=== PATIENT | female | born 1965 | race Caucasian/White ===

== ENCOUNTER 2017-01-24 08:43 | Emergency (ER) | payer BC ==
--- NOTE | 2017-01-24 09:02 | ED ---
Lower Extremity - History of Current Complaint Chief Complaint: EDExtremityLower Stated Complaint: LT ANKLE SWELLING Time Seen by Provider: 01/24/17 09:02 Pain Intensity: 6 - Allergies/Home Medications Allergies/Adverse Reactions: Allergies Allergy/AdvReac Type Severity Reaction Status Date / Time No Known Allergies Allergy Verified 01/24/17 09:04 PMH/Surg Hx/FS Hx/Imm Hx Endocrine/Hematology History: Denies: Hx Diabetes Cardiovascular History: Reports: Hx Angina, Hx Hypertension - ON DAILY MEDS Denies: Hx Coronary Artery Disease, Hx Hypercholesterolemia, Hx Myocardial Infarction, Hx Valvular Heart Disease, Other Cardiovascular Problems/Disorders History: Reports: Hx Kidney Stones - RIGHT AND LEFT Musculoskeletal History: Reports: Hx Back Problems Sensory History: Reports: Hx Contacts or Glasses Denies: Hx Hearing Aid Opthamlomology History: Reports: Hx Contacts or Glasses - Surgical History Surgery Procedure, Year, and Place: 1991 BILATERAL TUBAL LIGATION [place] , [facility] WITH URETERAL STENT, [facility] Hx Anesthesia Reactions: No Infectious Disease History: Denies: Hx of Known/Suspected MRSA, Hx Shingles, Hx Tuberculosis, Hx Known/ Suspected VRE, Hx Known/Suspected VRSA, History Other Infectious Disease, Traveled Outside the [place] in Last 30 Days - Family History Known Family History: Positive: Cardiac Disease Family History: Heart FHx - Social History Alcohol Use: Occasionally Hx Substance Use: No Substance Use Type: Reports: None Hx Tobacco Use: Yes Smoking Status (MU): Current Every Day Smoker Type: Cigarettes Amount Used/How Often: 1/2-TO 1 PPD 31 YRS Have You Smoked in the Last Year: Yes Physical Exam Vital Signs On Initial Exam: Initial Vitals Temp Pulse Resp BP Pulse Ox 98.6 F 80 20 177/96 97 01/24/17 08:56 01/24/17 08:56 01/24/17 08:56 01/24/17 08:56 01/24/17 08:56 Diagnostics - Vital Signs Vital Signs Temp Pulse Resp BP Pulse Ox 01/24/17 08:56 98.6 F 80 20 177/96 97 - Laboratory Result Diagrams: 01/24/17 11:25 01/24/17 11:25 Lab Statement: Any lab studies that have been ordered have been reviewed, and results considered in the medical decision making process. - Radiology lower extremity Xray Interpretation: No Acute Changes - Unremarkable left ankle. Soft tissue swelling is noted. Radiology Interpretation Completed By: Radiologist - Ultrasound No standard instances Ultrasound Interpretation: No Acute Changes - No evidence for LEFT lower extremity deep venous thrombosis. Ultrasound Interpretation Completed By: Radiologist Lower Extremity Course/Dx - Diagnoses Differential Diagnosis/HQI/PQRI: Positive: Arthritis, Cellulitis, Contusion, Dislocation, DVT, Gout, Infection, Septic Arthritis, Sprain, Strain, Other - GOUT, bone spur Provider Diagnoses: Left ankle swelling, Left ankle pain Discharge - Discharge Plan Condition: Stable Disposition: HOME Patient Education Materials: Swollen Joint (ED), Arthralgia (ED) Additional Instructions: Take ibuprofen for pain and inflammation. You may take Geddes in between doses to help with pain only as needed. Use crutches to assist you when you walk. Be sure to move around and be active as much as possible to prevent blood clots however rest foot and ankle. Elevate, ice and use collin bandage for compression. Follow up with PCP on Sunday. If symptoms worsen or new symptoms develop (redness, increased swelling/pain, fever/chills) please return and seek medical attention sooner.
--- NOTE | 2017-01-24 09:32 | RAD ---
Indication: Left ankle pain. 3 views of left ankle demonstrate soft tissue swelling. No fracture is identified. Ankle mortise is intact. IMPRESSION: Unremarkable left ankle. Soft tissue swelling is noted.
--- NOTE | 2017-01-24 10:47 | RAD ---
INDICATION: LEFT lower extremity pain and edema. COMPARISON: No relevant prior exams available on the [facility] PACS for comparison. TECHNIQUE: Mcarthur scale, color Doppler, and spectral analysis of the deep veins of the LEFT lower extremity. Vessel compression, phasicity, and augmentation assessed. REPORT: The LEFT common femoral, great saphenous, profunda femoral, femoral, popliteal, peroneal, and posterior tibial veins are patent. Patent muscular perforating vein visualized at the lower LEFT calf. Patency of the RIGHT common femoral vein documented. IMPRESSION: No evidence for LEFT lower extremity deep venous thrombosis.
[2017-01-24 12:10] LABS: Albumin 3.7 g/dL (3.2-5.2); Calcium 8.9 mg/dL (8.6-10.3); EGFR African American 119.3 (>60); EGFR Non-African American 92.8 (>60); Potassium 3.8 mmol/L (3.5-5.0); Total Bilirubin 0.4 mg/dL (0.2-1.0); Total Protein 6.7 g/dL (6.4-8.9)
[2017-01-24 12:17] LABS: Hematocrit 41 % (35-47); Hemoglobin 13.1 g/dl (12.0-16.0); Mean Corpuscular HGB Conc 32 g/dl (31-36); Mean Corpuscular Hemoglobin 31 pg (27-31); Mean Corpuscular Volume 97 fL (80-97); Mean Platelet Volume 9 um3 (7.4-10.4); Red Blood Count 4.18 10^6/ul (4.0-5.4); Red Cell Distribution Width 17 % (10.5-15); White Blood Count 10.2 10^3/ul (3.5-10.8)
[2017-01-24] MEDS ORDERED: HYDROcodone/ACETAMIN 5-325 MG* 1 TAB PO ONE (12:50)
[2017-01-24 13:17] VITALS: BP 176/95
== END 2017-01-24 13:20 | disposition home or self-care (01) ==
LOC: ED 08:43
DX: M25.572 Pain in left ankle and joints of left foot (principal); M25.472 Effusion, left ankle; R60.0 Localized edema; I10 Essential (primary) hypertension; Z87.442 Personal history of urinary calculi; F17.210 Nicotine dependence, cigarettes, uncomplicated
CPT/HCPCS: 36415; 80053; 84550; 85025; 99282

== ENCOUNTER 2018-09-23 10:48 | Emergency (ER) | payer BC ==
[2018-09-23 10:55] VITALS: BP 150/100
== END 2018-09-23 12:33 | disposition left against medical advice (07) ==
LOC: ED 10:48
DX: R10.13 Epigastric pain (principal); R11.0 Nausea; Z53.21 Procedure and treatment not carried out due to patient leaving prior to being seen by health care provider

== ENCOUNTER 2018-09-25 13:19 | Emergency (ER) | payer BC ==
--- NOTE | 2018-09-25 14:24 | UC ---
Abdominal Pain Female HPI - HPI Summary HPI Summary: 52-year-old female presents with one-week history of epigastric pain that radiates into her right lower chest and right upper abdomen. States pain is fairly constant, describes as a burning, and worsens with eating. Associated with some mild nausea. States she was hospitalized a couple of years ago for some chest pain and during that admission the performed an endoscopy and she was noted to have a small ulcer at that time. Denies fever, chills, chest pain , palpitations, shortness of breath, dizziness or weakness, diaphoresis, vomiting, diarrhea, dysuria, frequency, urgency, or hematuria. - History of Current Complaint Chief Complaint: UCAbdominalPain Stated Complaint: R SIDED PAIN/ RIB AREA, NAUSEA Time Seen by Provider: 09/25/18 14:09 Hx Obtained From: Patient Hx Last Menstrual Period: pt stated she bled for 6 weeks may-jul Pain Intensity: 7 Allergies/Adverse Reactions: Allergies Allergy/AdvReac Type Severity Reaction Status Date / Time No Known Allergies Allergy Verified 09/25/18 13:55 PMH/Surg Hx/FS Hx/Imm Hx Previously Healthy: Yes Cardiovascular History: Hypertension GI/ History: Kidney Stones - Surgical History Surgical History: Yes Surgery Procedure, Year, and Place: 1991 BILATERAL TUBAL LIGATION [place] , [place] WITH URETERAL STENT, [facility] [place] - Family History Known Family History: Positive: Cardiac Disease Family History: Heart FHx - Social History Occupation: Employed Part-time Lives: With Family Alcohol Use: Occasionally Substance Use Type: None Smoking Status (MU): Current Every Day Smoker Type: Cigarettes Amount Used/How Often: 1/2-TO 1 PPD 31 YRS Have You Smoked in the Last Year: Yes Household Exposure Type: Cigarettes - Immunization History Most Recent Influenza Vaccination: 2014 Most Recent Tetanus Shot: not sure Most Recent Pneumonia Vaccination: none Review of Systems All Other Systems Reviewed And Are Negative: Yes Constitutional: Negative: Fever, Chills Skin: Negative: Rash Respiratory: Negative: Shortness Of Breath, Cough Cardiovascular: Negative: Palpitations, Chest Pain Gastrointestinal: Positive: Abdominal Pain, Nausea. Negative: Vomiting, Diarrhea Genitourinary: Negative: Dysuria, Hematuria, Frequency, Urgency, Vaginal/Penile Discharge, Abnormal Bleeding Musculoskeletal: Positive: Negative Neurological: Positive: Negative Is Patient Immunocompromised?: No Physical Exam - Summary Physical Exam Summary: GENERAL APPEARANCE: Well developed, well nourished, alert and cooperative, and appears to be in no acute distress. CARDIAC: Normal S1 and S2. No S3, S4 or murmurs. Rhythm is regular. There is no peripheral edema, cyanosis or pallor. Extremities are warm and well perfused. Capillary refill is less than 2 seconds. Peripheral pulses intact. LUNGS: Clear to auscultation without rales, rhonchi, wheezing or diminished breath sounds. ABDOMEN: Positive bowel sounds. Soft, nondistended. Tenderness to RUQ and epigastrum with palpation. No guarding or rebound. No masses or hepatosplenomegally. MUSKULOSKELETAL: ROM intact to all extremities. No joint erythema or tenderness. Normal muscular development. Normal gait. SKIN: Skin normal color, texture and turgor with no lesions or eruptions. Triage Information Reviewed: Yes Vital Signs: Initial Vital Signs Temp 98.6 F 09/25/18 13:50 Pulse 108 09/25/18 13:50 Resp 18 09/25/18 13:50 BP 133/90 09/25/18 13:50 Pulse Ox 98 09/25/18 13:50 Vital Signs Reviewed: Yes Diagnostics - Radiology No standard instances Radiology Interpretation Completed By: Radiologist Summary of Radiographic Findings: Order Information: US ABDOMEN LIMITED. Accession Number: [id number]. CPT: 95959. HISTORY: RUQ pain, r/o gall bladder disease. COMPARISONS: None relevant available at the time of dictation. TECHNIQUE: Multiple transverse and longitudinal ultrasound images were obtained of the right upper quadrant of the abdomen using grayscale, color Doppler, and spectral Doppler imaging. FINDINGS: LIVER: The liver is diffusely echogenic and coarse in echotexture, with decreased acoustic transmission. The liver measures 18.7 cm in long axis. There is normal hepatopedal flow of the portal vein on Doppler imaging. BILIARY TREE: There is no intrahepatic or extrahepatic biliary dilatation. The common duct measures 0.5 cm. GALLBLADDER: The gallbladder is well-visualized. There is no cholelithiasis, gallbladder wall thickening, pericholecystic fluid, or sonographic Cutler sign. PANCREAS: The head of the pancreas is unremarkable. The tail of the pancreas is not well visualized secondary to overlying bowel gas. RIGHT KIDNEY: There is a nonspecific simple cyst of the lower pole of left kidney. This measures up to 0.9 cm. There is a 0.7 cm calculus of the midpole the right kidney. There is no hydronephrosis. The right kidney measures 11.6 x 5.2 x 6.6 cm. AORTA AND IVC: The aorta and IVC are unremarkable. Normal venous waveforms are identifiable on spectral Doppler imaging within the IVC. FLUID: There are no pleural effusions. There is no free fluid within the hepatorenal recess. OTHER FINDINGS: None. IMPRESSION: 1. HEPATOMEGALY WITH FATTY INFILTRATION OF THE LIVER. 2. RIGHT NEPHROLITHIASIS WITHOUT HYDRONEPHROSIS. Abd Pain Female Course/Dx - Course Course Of Treatment: 52-year-old female presents with one-week history of epigastric pain that radiates into her right lower chest and right upper abdomen. States pain is fairly constant, describes as a burning, and worsens with eating. Associated with some mild nausea. States she was hospitalized a couple of years ago for some chest pain and during that admission the performed an endoscopy and she was noted to have a small ulcer at that time. Denies fever, chills, chest pain , palpitations, shortness of breath, dizziness or weakness, diaphoresis, vomiting, diarrhea, dysuria, frequency, urgency, or hematuria. Afebrile. Vital signs stable. Exam reveals an obese adult female in no acute distress with epigastric and right upper quadrant tenderness without guarding or rebound and otherwise unremarkable exam. POC UA showed trace blood and trace protein. A right upper quadrant ultrasound was performed. She was noted to have an enlarged fatty liver, normal gallbladder and pancreas although visualization of the tail of the pancreas was limited by some gastric gas, small renal calculi within the right kidney without hydronephrosis, a simple cyst of the right kidney, and otherwise normal ultrasound. Patient currently does not have a primary care provider therefore I did get her a follow-up appointment with gastroenterology on October 10 at 11 AM to follow-up on the fatty liver findings. I am not sure if this is the source of her pain or if she perhaps has a peptic ulcer considering her past history therefore I'm going to start her on omeprazole 40 mg daily until she follows up in gastroenterology. I did provide her with the contact information for the [facility] physician referral service to assist her with establishing with a primary care provider as she will likely need follow-up for the finding of the renal cyst at some point. Anticipatory guidance and warning symptoms were reviewed with the patient. Verbalizes understanding and agrees with plan of care. - Differential Dx/Diagnosis Differential Diagnosis: Gall Bladder Disease, Hepatitis, Peptic Ulcer Disease, Renal Colic Provider Diagnosis: Fatty liver, Epigastric pain Discharge - Sign-Out/Discharge Documenting (check all that apply): Patient Departure All imaging exams completed and their final reports reviewed: Yes - Discharge Plan Condition: Stable Disposition: HOME Prescriptions: Omeprazole 40 mg PO DAILY #30 cap Patient Education Materials: Non-Alcoholic Fatty Liver Disease (ED), Epigastric Pain (ED), Kidney Cyst (ED) Referrals: No Primary Care Phys,NOPCP [Primary Care Provider] - [facility] [place] PHYSICIAN REFERRAL [Outside] Tejal Coates PA [Physician Beet Topper] - (You have an appointment scheduled for October 10, 2018 at 11:00 am to follow up on the ultrasound and your abdominal pain. Call if you need to reschedule this appointment.) Additional Instructions: The ultrasound performed in the clinic today showed a normal gall bladder however you do have an enlarged fatty liver. I cannot say for sure if this is the cause of your pain however you will need follow up for this finding. Additionally the ultrasound showed a small stone in the right kidney as well as a small cyst on the right kidney which will eventually need further evaluation. You pain could also represent a peptic ulcer therefore I will start you on omeprazole 40 mg daily. I have sent in a 30-day supply to the pharmacy for you until you can follow up with gastroenterology. You have an appointment with SIL Jorge in gastroenterology for October 10, 2018 at 11:00 am for further evaluation. Call if you need to reschedule this appointment. I have also given you the contact information for the [facility] physician referral center if you need assistance with establishing with a primary care provider. Seek immediate medical attention in the emergency room if you develop fever greater than 100.5 F, have worsening abdominal pain, persistent vomiting, blood in vomit or bowel movement, or any worsening of symptoms. - Billing Disposition and Condition Condition: STABLE Disposition: Home
[2018-09-25 15:52] VITALS: BP 122/73
== END 2018-09-25 16:00 | disposition home or self-care (01) ==
LOC: UCEAST 13:19
DX: R10.13 Epigastric pain (principal); K76.0 Fatty (change of) liver, not elsewhere classified; F17.210 Nicotine dependence, cigarettes, uncomplicated; I10 Essential (primary) hypertension; R11.0 Nausea
CPT/HCPCS: 76705; 81003; 99212; G0463

== ENCOUNTER 2018-10-14 17:45 | Emergency (ER) | payer BC ==
[~2018-10-14 17:45] MED LIST: Calcium CHLORIDE 10% SYRINGE* 1 GM/10 ML ONE; EPINEPHrine SYR 0.1MG/ML* SYRINGE ONE; Sodium Bicarbonate 8.4%* 50 ML SYRINGE ONE
[2018-10-14] MEDS ORDERED: EPINEPHrine SYR 0.1MG/ML* SYRINGE ONE (17:54)
--- OUTSIDE RECORDS SUMMARY | 2018-10-14 17:56 | XMS REPORT | Continuity of Care Document ---
:1965 External Reference #:[id number] Author Name LETHA Calloway Address [address] [place] [address] Care Team Providers Name Role Phone Theresa Loza M.D. 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 Primary Care Physician Unavailable Payers Date Identification Numbers Payment Provider Subscriber Effective: 2014 Policy Number: [id number] BC/BS Of [place] Niru Mcdonnell PayID: [id number] [address] [address] [place] [address] Advance Directives Description No Information Available Problems Description No Information Family History Date Family Member(s) Observation Comments Father due to VA () - age 68 Mother Breast Cancer Mother due to Heart disease () - age 73 First Brother Hypertension First Sister [place] age 38 for the first one, has multiple stents Paternal Grandfather due to VA () - age 72 Maternal Grandmother Stroke Social History Type Date Description Comments Sex Unknown Education Highest level completed, 12th grade Lives With Girlfriend Diet Healthy, Well Balanced Sleep Reports continuity disturbances Pets 1 cat Pets 1 dog 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 [employer] Tobacco Use Start: Unknown Current Cigarette Smoker for 36 years 1 Pack Daily ETOH Use Occasional Exercise Type/Frequency Exercises regularly on her feet all day at work Seat Belt/Car Seat Always uses seat belt Allergies, Adverse Reactions, Alerts Description No Known Drug Allergies Medications Medication Date Status Form Strength Qnty SIG Indications Ordering Provider Lisinopril Active Tablets 20mg 1 by Unknown 00 mouth every day Omeprazole Active Capsules DR 40mg 1 by Unknown 00 mouth every day Immunizations Description No Information Available Vital Signs Date Vital Result Comment 09/27/2018 2:30pm BP Systolic 120 mmHg BP Diastolic 80 mmHg Heart Rate 72 /min Body Temperature 98.4 F Respiratory Rate 18 /min Height 65.5 inches 5'5.50" Weight 252.00 lb BMI (Body Mass Index) 41.3 kg/m2 Results Description No Information Available Procedures Description No Information Available Encounters Description No Information Available Plan of Treatment 09/27/2018 - Kaylah Lyn, FNPN95.8 Other specified menopausal and perimenopausal disordersComments:Schedule a PV for rn embedded/breast examK29.60 Other gastritis without bleedingComments:Continue Omeprazole for a month or twoCall if sx [id number] Low back painComments:Will refer to Dr. Carnes if the pain recursFollow up:Followup:. (Follow up)
[2018-10-14 18:00] VITALS: BP 00/00
--- NOTE | 2018-10-14 18:09 | ED ---
Cardiac Resuscitation - HPI Summary HPI Summary: Patient is a 52 y/o female brought in by EMS who presents to the ED c/o cardiac arrest. As per EMS, she called 911 for chest pain and N/V for an unknown amount of time. Upon EMS arrival patient was anxious and SOB and ran onto the stretcher. Once she was sitting on the stretcher she began to have seizure-like activity. Patient regained consciousness then became bradycardic with a HR in the 30s. She then went into asystole around 17:00. Patient has been in asystole for about 40 minutes by the time of arrival at 17:42. EMS initiated CPR and she has been given a total of 3 Epinephrines. Patient was intubated by EMS, and there was a brief moment of PEA. A 3-lead EKG done by EMS revealed an LA. She was accompanied by a friend who was unable to provide any history. As per medical records, PMHx angina, HTN, elevated troponin. A nuclear stress test in August 2015 revealed anterior wall septal ischemia, however Dr. Cason believes this reading to be false. FHx cardiac disease. Patient is a smoker, and smokes PPD for 33 years. ABC Alert called at 17:27, ETA 20 minutes. Patient is a level 5 caveat due to her level of consciousness. Time of called at 18:00. - History of Current Complaint Stated Complaint: ABC Hx Obtained From: EMS, Medical Records Hx From Patient Unobtainable Due To: Extremis Onset/Duration: Minutes/Hours: - asystole since 17:00 Arrest Witnessed: Yes - Additional Pertinent History Primary Care Physician: [id number] - Allergies/Home Medications Allergies/Adverse Reactions: Allergies Allergy/AdvReac Type Severity Reaction Status Date / Time No Known Allergies Allergy Verified 09/25/18 13:55 Home Medications: Home Medications Diclofenac Sodium EC TAB* [Voltaren EC TAB*] 75 mg PO BID WITH MEALS 10/14/18 [ History Confirmed 10/14/18] Lisinopril TAB* [Prinivil TAB*] 20 mg PO DAILY 10/14/18 [History Confirmed 10/14] Norethindrone AC-Eth Estradiol [Microgestin 21 1.5-30 Tab] 1 tab PO DAILY [History Confirmed 10/14/18] Omeprazole (Nf) [Prilosec (NF)] 40 mg PO DAILY 10/14/18 [History Confirmed 10/14] Ranitidine TAB (NF) [Zantac TAB (NF)] 150 mg PO BID 10/14/18 [History Confirmed 10/14/18] - Past Medical History Past Medical History: Other: - angina, HTN, elevated troponin - Family History Family History: Other: - cardiac disease - Social History Social History: Tobacco Use - daily smoker, 1/2 PPD for 33 years, Other: - No drug/alcohol use - Review of Systems Review of Systems: Unobtainable Due to Extremis - CP, N/V, anxiety, SOB Physical Examination - Summary Physical Exam Summary: VITAL SIGNS: unable to obtain GENERAL: Patient is unresponsive. Patient was intubated by EMS. HEAD AND FACE: No signs of trauma. No ecchymosis, hematomas or skull depressions. EYES: Pupils dilated and non responsive MOUTH: Patient intubated NECK: Supple, trachea is midline, no adenopathy, no JVD, no carotid bruit. LUNGS: Decreased breath sounds. CVS: PEA ABDOMEN: Obese, soft, decreased bowel sounds EXTREMITIES: No edema noted. NEURO: Unresponsive SKIN: cyanotic from head to chest - Physical Examination Triage Information Reviewed: Yes Completion Of Physical Exam Limited Due To: Extremis Diagnostics - Vital Signs Vital Signs Temp Pulse Resp BP Pulse Ox 10/14/18 17:55 0 F 0 0 00/00 0 - Laboratory Result Diagrams: 10/14/18 17:47 10/14/18 17:47 Lab Statement: Any lab studies that have been ordered have been reviewed, and results considered in the medical decision making process. Re-Evaluation - Re-Evaluation First Eval Re-Evaluation Time: 17:55 Change: Unchanged Comment: Spoke to pt's family members and girlfriend, who wish for CPR to be stopped. Cardiac Resus. Course/Dx - Course Assessment/Plan: This patient is a 52-year-old female who presents to the emergency department via ambulance with an active CPR. As per EMS crew the patient called 911 complaining of chest pain and shortness of breath. When they arrived the patient ran into out to the EMS truck and she went down, and she developed a seizure. After the seizure the patient had no pulses she was hypoxic and cyanotic in the face therefore they proceeded to start CPR and the patient was intubated. The patient was intubated with a 7.0 ETT. Saranyall obtained an IO and and she was given a total of 3 epinephrines. At arrival to the emergency department the patient was asystolic, cyanotic from the head to the chest, patient was intubated, and she was easy to bag. We continued CPR and gave a total of 8 epinephrines, and she was given calcium and bicarbonate but the patient never regained a rhythm. The patient was asystolic in PEA the whole time. Then I discussed my findings with the patients girlfriend and she agrees that wishes to stop on the resuscitation efforts at this time. Therefore at approximately 6 PM I stopped CPR and pronounced her . I looked at one of the strips from an EKG taken by the EMS and it looks that the patient had ST elevations in leads II, III, and aVF. Also Dr. Downey agrees with ST elevations in 2-3 and aVF. I discussed all my findings and discussed the case with Dr. Ibeth Swartz the corner, and she agrees that the patient will go [place] the [facility] [place] [place]. The patients girlfriend also agrees for the autopsy. - Diagnoses Provider Diagnoses: on arrival, PEA (Pulseless electrical activity) During the Visit The Following Alert/Code Occurred: ABC Alert - Called at 17:27 , ETA 20 minutes - Provider Notifications Discussed Care Of Patient With: Nicholas Downey Time Discussed With Above Provider: 18:04 Instructed by Provider To: Other - Dr. Downey agrees the pt likely had an inferior wall LA based off the EMS EKG reading. At 18:17 Carrie Swartz says that she will take the patient for an autopsy. - Critical Care Time Critical Care Time: 30-74 min - CCT is exclusive of separately billable procedures. Discharge - Sign-Out/Discharge Documenting (check all that apply): Patient Departure - Patient Received Moderate/Deep Sedation with Procedure: No - Discharge Plan Condition: Disposition: Referrals: Enriqueta Gerard [Primary Care Provider] - - Billing Disposition and Condition Condition: Disposition: - Attestation Statements Document Initiated by Scribe: Yes Documenting Scribe: Carly Corona Provider For Whom Scribe is Documenting (Include Credential): Cole Strickland MD Scribe Attestation: I, Carly Corona, scribed for Cole Strickland MD on 10/16/18 at 2141. Scribe Documentation Reviewed: Yes Provider Attestation: The documentation as recorded by the scribeCarly accurately reflects the service I personally performed and the decisions made by me, Cole Strickland MD Status of Scribe Document: Viewed
[2018-10-14 18:19] LABS: Hematocrit 39 % (33-41); Hemoglobin 11.7 g/dL (12.0-16.0); Mean Corpuscular HGB Conc 30 g/dL (31-36); Mean Corpuscular Hemoglobin 31 pg (27-31); Mean Corpuscular Volume 102 fL (80-97); Red Blood Count 3.77 10^6 /uL (3.70-4.87); Red Cell Distribution Width 20 % (10.5-15); White Blood Count 12.3 10^3/uL (3.5-10.8)
[2018-10-14 18:21] LABS: Troponin I 0.44 ng/mL (<0.04)
[2018-10-14 18:22] LABS: CKMB ng/mL 3.5 ng/mL (0.6-6.3)
[2018-10-14 18:30] LABS: Activated Partial Thrombo Time 30.1 seconds (26.0-36.3); INR 0.96 (0.77-1.02)
[2018-10-14 18:43] LABS: ALT 34 U/L (7-52); AST 38 U/L (13-39); Albumin 3.2 g/dL (3.2-5.2); Albumin/Globulin Ratio 1.1 (1-3); Alkaline Phosphatase 70 U/L (34-104); BUN/Creatinine Ratio 9.5 (8-20); Blood Urea Nitrogen 10 mg/dL (6-24); Chloride 106 mmol/L (101-111); Creatine Kinase 112 U/L (10-223); EGFR African American 66.6 (>60); Globulin 2.8 g/dL (2-4); Glucose 275 mg/dL (70-100); Magnesium 2.2 mg/dL (1.9-2.7); Potassium 3.8 mmol/L (3.5-5.0); Sodium 143 mmol/L (135-145)
[2018-10-14 18:46] LABS: Anion Gap 24 mmol/L (2-11)
[2018-10-14 18:47] LABS: CO2 Carbon Dioxide 13 mmol/L (22-32)
[2018-10-14 19:04] LABS: Mean Platelet Volume 9.3 fL (7.4-10.4)
[2018-10-14 19:05] LABS: Platelet Count 117 10^3/uL (150-450)
[2018-10-14 19:06] LABS: ABS Basophils 0.1 10^3/ul (0-0.2); ABS Eosinophils 0.1 10^3/ul (0-0.6); ABS Lymphocytes 6.6 10^3/ul (1.0-4.8); ABS Neutrophils 4.6 10^3/ul (1.5-7.7); ABS Nucleated RBC 0.1 10^3/ul; Eosinophil % 0.6 %; Lymphocyte % 53.5 %; Nucleated Red Blood Cells % 0.4
== END 2018-10-14 18:00 | disposition expired ==
LOC: ED 17:45
DX: I46.9 Cardiac arrest, cause unspecified (principal); I10 Essential (primary) hypertension
CPT/HCPCS: 36415; 80053; 82550; 82553; 83605; 83735; 83880; 84484; 85025; 85060; 85379; 85610; 85730; 96374; 96375; 96376; 99284; J0171